=== PATIENT | male | born 1945 | race Caucasian/White ===

== ENCOUNTER 2018-01-02 21:00 | Emergency (ER) | payer OTHER ==
[~2018-01-02] VITALS: Ht 167.6 cm; Wt 73.9 kg
[~2018-01-02 21:00] MED LIST: ASPI325 PO; ASPI81EC PO; AZIT250 PO; CIPR500 PO; CLOP75 PO; Cipro500 MG PO; Coq-10100 MG PO; DIPASPER PO; DIPATR PO; FLUV20; GUAIFENESIN-CODE5 ML PO; HYDACE10B PO; HYDACE5 PO; IBUP800 PO; LEVFLO500 PO; LISI20 PO; METF500 PO; METO50 PO; METO50ER PO; NAPR500 PO; Norco 5-325 Ta1 EACH PO; OMEP20ER PO; ONDA4ODT MM; PANT40 PO; PRAV10 PO; PROCODE120 PO; Percocet 5-3251 EACH PO; ROSU10TA PO; SUCR1 PO; TAMS.4ER PO; Zofran Odt4 MG SL; Zofran Odt8 MG PO
[2018-01-02] MEDS ORDERED: FURO20 PO (21:20)
== END 2018-01-02 23:25 | disposition home or self-care (01) ==
LOC: ER 21:00
DX: I86.1 Scrotal varices (principal); N50.811 Right testicular pain; Z88.1 Allergy status to other antibiotic agents; Z88.8 Allergy status to other drugs, medicaments and biological substances; Z79.899 Other long term (current) drug therapy; Z79.82 Long term (current) use of aspirin; Z86.73 Personal history of transient ischemic attack (TIA), and cerebral infarction without residual deficits; I10 Essential (primary) hypertension; E11.9 Type 2 diabetes mellitus without complications; Z85.46 Personal history of malignant neoplasm of prostate
CPT/HCPCS: 76870; 81000; 99284

== ENCOUNTER 2018-03-17 20:18 | Inpatient (IN) | payer OTHER ==
[~2018-03-17] VITALS: Ht 177.8 cm; Wt 80.9 kg
[~2018-03-17 20:18] MED LIST changes: -ACET325 PO; -ALBU90OI6 INH; -BUDE10.22 INH; -CHOL10002 PO; -ERGO400 PO; -PRED10 PO; -SACC250C PO
[2018-03-17 20:52] LABS: BASOPHILS ABSOLUTE AUTO 0.03 K/mm3 (0.00-0.23); BASOPHILS PERCENT AUTO 0 % (0-2); EOSINOPHILS ABSOLUTE AUTO 0.14 K/mm3 (0.00-0.68); EOSINOPHILS PERCENT AUTO 2 % (0-6); Hemoglobin 14.7 g/dL (13.5-17.5); IMMATURE GRAN ABSOLUTE AUTO 0.03 K/mm3 (0.00-0.10); IMMATURE GRAN PERCENT AUTO 0 % (0-1); LYMPHOCYTES ABSOLUTE AUTO 2.16 K/mm3 (0.84-5.20); LYMPHOCYTES PERCENT AUTO 27 % (21-46); MONOCYTES ABSOLUTE AUTO 0.08 K/mm3 (0.16-1.47); MONOCYTES PERCENT AUTO 1 % (4-13); Mean Corpuscular HGB 31.4 pg (26.0-34.0); Mean Corpuscular HGB Conc 33.4 g/dL (31.5-36.5); Mean Corpuscular Volume 94 fL (80-100); Mean Platelet Volume 10.5 fL (9.1-12.4); NEUTROPHILS ABSOLUTE AUTO 5.46 K/mm3 (1.96-9.15); NEUTROPHILS PERCENT AUTO 69 % (41-73); Platelet Count 146 K/mm3 (150-400); RDW Coefficient Variation 12.7 % (11.7-14.2); RDW Standard Deviation 43.7 fL (35.1-46.3); Red Blood Cell Count 4.68 M/mm3 (4.30-5.90)
[2018-03-17 21:06] LABS: International Normalized Ratio 1.03; Prothrombin Time Results 10.7 Sec (9.7-11.5)
[2018-03-17 21:12] LABS: Alanine Aminotransfer (ALT/SGP 29 U/L (12-78); Albumin, Blood 3.5 g/dL (3.4-5.0); Alk Phos 72 U/L (50-136); Anion Gap 9 mmol/L (6-16); Aspartate Aminotrans (AST/SGOT 28 U/L (12-37); Bilirubin, Total 0.4 mg/dL (0.1-1.0); Blood Urea Nitrogen 21 mg/dL (8-24); Bun/Creatinine Ratio 15.4 (12.0-20.0); CO2, Blood 25 mmol/L (21-32); Chloride, Blood 106 mmol/L (98-108); Creatinine, Blood 1.36 mg/dL (0.60-1.20); Globulin, Blood 3.4 g/dL (2.2-4.0); Glomerular Filtration Rate 55 (60-); Glucose, Blood 109 mg/dL (70-99); Potassium, Blood 4.3 mmol/L (3.5-5.5); Sodium, Blood 140 mmol/L (136-145); Total Protein, Blood 6.9 g/dL (6.4-8.2); Troponin I <0.015 ng/mL (0.000-0.040)
[2018-03-17 21:26] LABS: Influenza A Negative (NEGATIVE); Influenza B Negative (NEGATIVE)
[2018-03-17 21:49] LABS: Source, Urine Clean Catch
[2018-03-17 21:59] LABS: Bilirubin, Urine Neg (Neg); Blood, Urine Neg (Neg); Glucose Qualitative, Urine Neg (Neg); Ketones, Urine Neg (Neg); Leukocyte Esterase, Urine Neg (Neg); Nitrite, Urine Neg (Neg); Protein, Urine Neg (Neg); Urobilinogen, Urine 1+ (Normal)
[2018-03-17 22:10] LABS: Appearance, Urine Clear (Clear); Color, Urine Yellow (P-Yellow)
[2018-03-17] MEDS ORDERED: ERGO400 PO (22:25)
[2018-03-18] MEDS ORDERED: CHOL10002 PO (00:06)
[2018-03-18 04:13] LABS: BASOPHILS ABSOLUTE AUTO 0.02 K/mm3 (0.00-0.23); BASOPHILS PERCENT AUTO 0 % (0-2); EOSINOPHILS PERCENT AUTO 0 % (0-6); Hematocrit 39.5 % (37.0-53.0); Hemoglobin 12.9 g/dL (13.5-17.5); IMMATURE GRAN ABSOLUTE AUTO 0.05 K/mm3 (0.00-0.10); IMMATURE GRAN PERCENT AUTO 0 % (0-1); LYMPHOCYTES ABSOLUTE AUTO 1.67 K/mm3 (0.84-5.20); LYMPHOCYTES PERCENT AUTO 14 % (21-46); MONOCYTES PERCENT AUTO 8 % (4-13); Mean Corpuscular HGB 31.1 pg (26.0-34.0); Mean Corpuscular HGB Conc 32.7 g/dL (31.5-36.5); Mean Corpuscular Volume 95 fL (80-100); NEUTROPHILS PERCENT AUTO 78 % (41-73); Platelet Count 145 K/mm3 (150-400); RDW Coefficient Variation 12.9 % (11.7-14.2); RDW Standard Deviation 44.8 fL (35.1-46.3); Red Blood Cell Count 4.15 M/mm3 (4.30-5.90); White Blood Cell Count 12.24 K/mm3 (4.00-11.30)
[2018-03-18 04:45] LABS: Bilirubin, Total 0.5 mg/dL (0.1-1.0); Bun/Creatinine Ratio 15.6 (12.0-20.0); Calcium, Blood 7.7 mg/dL (8.5-10.1); Creatinine, Blood 1.47 mg/dL (0.60-1.20); Globulin, Blood 2.9 g/dL (2.2-4.0); Potassium, Blood 4.6 mmol/L (3.5-5.5); Total Protein, Blood 5.9 g/dL (6.4-8.2)
[2018-03-19 04:07] LABS: BASOPHILS ABSOLUTE AUTO 0.01 K/mm3 (0.00-0.23); BASOPHILS PERCENT AUTO 0 % (0-2); EOSINOPHILS PERCENT AUTO 0 % (0-6); Hematocrit 39.7 % (37.0-53.0); Hemoglobin 13.2 g/dL (13.5-17.5); IMMATURE GRAN ABSOLUTE AUTO 0.08 K/mm3 (0.00-0.10); IMMATURE GRAN PERCENT AUTO 1 % (0-1); LYMPHOCYTES ABSOLUTE AUTO 2.47 K/mm3 (0.84-5.20); LYMPHOCYTES PERCENT AUTO 20 % (21-46); MONOCYTES PERCENT AUTO 4 % (4-13); Mean Corpuscular HGB 31.5 pg (26.0-34.0); Mean Corpuscular HGB Conc 33.2 g/dL (31.5-36.5); Mean Corpuscular Volume 95 fL (80-100); Mean Platelet Volume 11.1 fL (9.1-12.4); NEUTROPHILS ABSOLUTE AUTO 9.16 K/mm3 (1.96-9.15); NEUTROPHILS PERCENT AUTO 75 % (41-73); Platelet Count 144 K/mm3 (150-400); RDW Coefficient Variation 13.2 % (11.7-14.2); RDW Standard Deviation 45.6 fL (35.1-46.3); Red Blood Cell Count 4.19 M/mm3 (4.30-5.90); White Blood Cell Count 12.22 K/mm3 (4.00-11.30)
[2018-03-19 04:23] LABS: Anion Gap 6 mmol/L (6-16); Blood Urea Nitrogen 24 mg/dL (8-24); Bun/Creatinine Ratio 20.9 (12.0-20.0); CO2, Blood 22 mmol/L (21-32); Calcium, Blood 8.5 mg/dL (8.5-10.1); Chloride, Blood 113 mmol/L (98-108); Creatinine, Blood 1.15 mg/dL (0.60-1.20); Glomerular Filtration Rate >60 (60-); Glucose, Blood 142 mg/dL (70-99); Magnesium, Blood 2.1 mg/dL (1.6-2.4); Phosphorus, Blood 2.6 mg/dL (2.5-4.9); Potassium, Blood 4.8 mmol/L (3.5-5.5); Sodium, Blood 141 mmol/L (136-145)
[2018-03-19] MEDS ORDERED: ACET325 PO (09:52)
[2018-03-19] MEDS ORDERED: PRED10 PO (09:55)
[2018-03-19] MEDS ORDERED: SACC250C PO (09:56)
[2018-03-19] MEDS ORDERED: ALBU90OI6 INH (09:57)
[2018-03-19] MEDS ORDERED: AZIT250 PO (09:58)
[2018-03-19] MEDS ORDERED: BUDE10.22 INH (09:59)
== END 2018-03-19 11:15 | disposition home or self-care (01) | DRG 203 ==
LOC: ER 20:18 → PCU 20:19
PROVIDERS: Hospitalist; Internal Medicine; Physician Assistant
DX: J40 Bronchitis, not specified as acute or chronic (principal); R53.1 Weakness; I12.9 Hypertensive chronic kidney disease with stage 1 through stage 4 chronic kidney disease, or unspecified chronic kidney disease; N18.3 Chronic kidney disease, stage 3 (moderate); E78.5 Hyperlipidemia, unspecified; R19.7 Diarrhea, unspecified
CPT/HCPCS: 36415; 71046; 71275; 74175; 80048; 80053; 81003; 83605; 83735; 84100; 84484; 85025; 85610; 85730; 87040; 87070; 87076; 87086; 87185; 87205; 87804; 92610; 93005; 93010; 94640; 94760; 96361; 96365; 96375; 99285; G8996; G8997; G8998; J0456; J0696; J1650; J2405; J2930; J7030; J7050; Q9967

== ENCOUNTER → 2018-03-17 | Outpatient (CLI) | payer OTHER ==
[~2018-03-17] MED LIST changes: +ACET325 PO; +ALBU90OI6 INH; +BUDE10.22 INH; +CHOL10002 PO; +ERGO400 PO; +FURO20 PO; +PRED10 PO; +SACC250C PO
== END ==
LOC: LAB EV 10:23 → LAB SHORT 10:23
DX: J02.9 Acute pharyngitis, unspecified (principal)
CPT/HCPCS: 87070

== ENCOUNTER 2019-08-18 08:55 | Day surgery (SDC) | payer OTHER ==
[~2019-08-18] VITALS: Ht 167.6 cm; Wt 78.4 kg
[~2019-08-18 08:55] MED LIST changes: +ACET325 PO; +ALBU90OI6 INH; +ASPI325EC PO; +BUDE10.22 INH; +CHOL10002 PO; +ERGO400 PO; +METO25ER PO; +PRED10 PO; +SACC250C PO; +UBID10 PO
== END 2019-08-18 11:50 | disposition home or self-care (01) ==
LOC: ORSCSDS 08:55
PROVIDERS: Internal Medicine Gastroenterology
PROC: 0DB58ZX Excision of Esophagus, Via Natural or Artificial Opening Endoscopic, Diagnostic (ICD-10-PCS; principal; 2019-08-18 10:30)
PROC: 0DBK8ZX Excision of Ascending Colon, Via Natural or Artificial Opening Endoscopic, Diagnostic (ICD-10-PCS; principal; 2019-08-18 10:30)
DX: Z12.11 Encounter for screening for malignant neoplasm of colon (principal); Z86.010 Personal history of colon polyps; D12.2 Benign neoplasm of ascending colon; K22.70 Barrett's esophagus without dysplasia; K57.30 Diverticulosis of large intestine without perforation or abscess without bleeding; Z80.0 Family history of malignant neoplasm of digestive organs; K44.9 Diaphragmatic hernia without obstruction or gangrene; Z95.0 Presence of cardiac pacemaker; Z79.82 Long term (current) use of aspirin; Z79.899 Other long term (current) drug therapy
CPT/HCPCS: 88305; J2704; J7120

== ENCOUNTER 2021-04-29 17:48 | Observation (INO) | payer OTHER ==
[~2021-04-29] VITALS: Ht 167.6 cm; Wt 76.2 kg
[2021-04-29] MEDS ORDERED: ALLO100 PO (18:03)
[2021-04-29 18:16] LABS: Hematocrit 44.1 % (37.0-53.0); Hemoglobin 14.5 g/dL (13.5-17.5); Mean Corpuscular HGB 31.3 pg (26.0-34.0); Mean Corpuscular HGB Conc 32.9 g/dL (31.5-36.5); Mean Corpuscular Volume 95 fL (80-100); Mean Platelet Volume 11.1 fL (9.1-12.4); Platelet Count 177 K/mm3 (150-400); RDW Coefficient Variation 12.7 % (11.7-14.2); RDW Standard Deviation 44.1 fL (35.1-46.3); Red Blood Cell Count 4.64 M/mm3 (4.30-5.90); White Blood Cell Count 43.63 K/mm3 (4.00-11.30)
[2021-04-29 18:32] LABS: Albumin, Blood 3.8 g/dL (3.4-5.0); Albumin/Globulin Ratio 1.2 (0.8-1.8); Bilirubin, Total 0.4 mg/dL (0.1-1.0); Bun/Creatinine Ratio 19.4 (12.0-20.0); Calcium, Blood 8.9 mg/dL (8.5-10.1); Creatinine, Blood 1.44 mg/dL (0.60-1.20); Globulin, Blood 3.3 g/dL (2.2-4.0); Potassium, Blood 4.5 mmol/L (3.5-5.5); Total Protein, Blood 7.1 g/dL (6.4-8.2)
[2021-04-29 19:32] LABS: BASOPHILS PERCENT MAN 0 % (0-2); EOSINOPHILS ABSOLUTE MAN 0.43 K/mm3 (0.00-0.68); EOSINOPHILS PERCENT MAN 1 % (0-6); LYMPHOCYTES ABSOLUTE MAN 38.39 K/mm3 (0.84-5.20); LYMPHOCYTES PERCENT MAN 88 % (21-46); MONOCYTES ABSOLUTE MAN 0.87 K/mm3 (0.16-1.47); MONOCYTES PERCENT MAN 2 % (4-13); NEUTROPHILS ABSOLUTE MAN 3.92 K/mm3 (1.96-9.15); SEG NEUTROPHILS PERCENT MAN 9 % (41-73); TOTAL CELLS COUNTED 100
--- NOTE | 2021-04-29 22:48 | NUR ---
ADMITTED 75 YR OLD MALE TO FLOOR FROM THE ED WITH DX OF GI BLEED. PT REPORTED THAT EARLIER IN THE DAY HE FELT DIZZY, TOOK HIS BP AND IT WAS LOW, THEN AFTER SOME SLEEP, HE THREW UP "A MOUTHFUL OF BLOOD", AND HIS BROUGHT HIM TO THE HOSPITAL. ALERT AND ORIENTED X 4. ORIENTED TO CALL LIGHT, INSTRTUCTED TO USE IT IF HE FELT DIZZY. CALL LIGHT IN REACH.
[2021-04-29 22:51] LABS: Hematocrit 43.9 % (37.0-53.0); Hemoglobin 14.8 g/dL (13.5-17.5)
--- NOTE | 2021-04-29 23:11 | NUR ---
IVF OF NS AND PROTONIX DRIP ORDERED AND STARTED - SEE MAR FOR DETAILS. CALL LIGHT IN REACH. AFFECT CHEERFUL. NO REPORTED EMESIS OF THIS WRITING SINCE ADMIT TO FLOOR. WILL CONTINUE TO MONITOR
--- NOTE | 2021-04-30 05:47 | NUR ---
PLASTIC FABRICATOR SUMMARY WAS ADMITTED EARLIER IN THE SHIFT WITH DX OF UPPER GI BLEED AFTER REPORTEDLY HAVING BLOODY EMESIS AT HOME. IVF OF NS AND IV PROTONIX DRIP INFUSING PER MD ORDERS -SEE MAR FOR DETAILS. NO NOTED HEMATEMESIS SINCE ARRIVAL TO FLOOR LAST EVENING. MD MET PT AT BEDSIDE LAST NIGHT AND SAID HE WOULD BE SCHEDULED FOR AN EGD TODAY. WILL BE NPO AROUND 0700 FOR PROCEDURE. CALL LIGHT IN REACH.
[2021-04-30 07:27] LABS: Performing Lab BLOODWORKS; Test Name AB ID
[2021-04-30 07:37] LABS: Hematocrit 43.6 % (37.0-53.0); Hemoglobin 14.7 g/dL (13.5-17.5); Mean Corpuscular HGB 31.7 pg (26.0-34.0); Mean Corpuscular HGB Conc 33.7 g/dL (31.5-36.5); Mean Corpuscular Volume 94 fL (80-100); Mean Platelet Volume 10.8 fL (9.1-12.4); Platelet Count 156 K/mm3 (150-400); RDW Coefficient Variation 12.9 % (11.7-14.2); RDW Standard Deviation 44.4 fL (35.1-46.3); Red Blood Cell Count 4.64 M/mm3 (4.30-5.90); White Blood Cell Count 39.28 K/mm3 (4.00-11.30)
[2021-04-30 07:59] LABS: Albumin, Blood 3.5 g/dL (3.4-5.0); Albumin/Globulin Ratio 1.2 (0.8-1.8); Bilirubin, Total 0.6 mg/dL (0.1-1.0); Bun/Creatinine Ratio 18.9 (12.0-20.0); Calcium, Blood 8.5 mg/dL (8.5-10.1); Creatinine, Blood 1.27 mg/dL (0.60-1.20); Potassium, Blood 4.7 mmol/L (3.5-5.5); Total Protein, Blood 6.5 g/dL (6.4-8.2)
[2021-04-30 08:30] LABS: BASOPHILS PERCENT MAN 0 % (0-2); EOSINOPHILS ABSOLUTE MAN 0.39 K/mm3 (0.00-0.68); EOSINOPHILS PERCENT MAN 1 % (0-6); LYMPHOCYTES ABSOLUTE MAN 36.92 K/mm3 (0.84-5.20); LYMPHOCYTES PERCENT MAN 94 % (21-46); MONOCYTES PERCENT MAN 0 % (4-13); NEUTROPHILS ABSOLUTE MAN 1.96 K/mm3 (1.96-9.15); SEG NEUTROPHILS PERCENT MAN 5 % (41-73); TOTAL CELLS COUNTED 100
[2021-04-30 08:35] LABS: SARS-Cov-2 (COVID-19) PCR, MMC NEGATIVE (NEGATIVE)
--- NOTE | 2021-04-30 14:27 | NUR ---
History, Chart, Medications and Allergies reviewed before start of procedure. Lungs clear T/O to Auscultation. Patient confirms NPO status and agrees with scheduled surgery. Pre-Op teaching done. Pt verbalizes understanding.
--- NOTE | 2021-04-30 15:38 | NUR ---
04/30/21 1538 Marely Vogt History, Chart, Medications and Allergies reviewed before start of procedure. Patient confirms NPO status and agrees with scheduled surgery. 3-LEAD EKG REVIEWED WITH PHYSICIAN PRIOR TO START OF PROCEDURE. MONITOR INTACT WITH CONTINUOUS PULSE OXIMETRY AND INTERMITTENT BP. PATIENT DETERMINED TO BE ASA APPROPRIATE FOR PROPOFOL SEDATION PRIOR TO START OF PROCEDURE BY . Bite Block Placed AND THEN REMOVED AFTER PROCEDURE.
[2021-04-30 16:34] LABS: Hematocrit 45.3 % (37.0-53.0); Hemoglobin 15.1 g/dL (13.5-17.5)
--- NOTE | 2021-04-30 18:41 | NUR ---
PT DISCHARGED THE PT VERBALIZED UNDERSTANDING OF THE DC INSTRUCTIONS, THE PT APPEARED TO BE BREATHING EASILY ON RA T/O THE DAY, PT HAD NO BLOODY EMISIS TODAY, EGD WAS PREFORMED TODAY PT TOLERATED WELL, WAS ABLE TO EAT DINNER WITH NO N/V, PT WAS TRANSFERED VIA WHEELCHAIR ACCOMPANIED BY THE CUFF SETTER OVERLOCK AND HIS , THE PT WAS REMINDED TO CALL HIS PCP ON SUNDAY TO SCHEDULE A POST HOSPITAL REVIEW APPOINTMENT
[2021-05-02 10:09] LABS: Result SEE REPORT
== END 2021-04-30 18:10 | disposition home or self-care (01) ==
LOC: ER 17:48 → MEDS 17:49
PROVIDERS: Emergency Medicine; Internal Medicine Gastroenterology; ADMIT Internal Medicine
PROC: 0DJ08ZZ Inspection of Upper Intestinal Tract, Via Natural or Artificial Opening Endoscopic (ICD-10-PCS; principal; 2021-04-30 10:00)
DX: K26.4 Chronic or unspecified duodenal ulcer with hemorrhage (principal); T39.015A Adverse effect of aspirin, initial encounter; K22.8 Other specified diseases of esophagus; K44.9 Diaphragmatic hernia without obstruction or gangrene; M19.90 Unspecified osteoarthritis, unspecified site; E78.5 Hyperlipidemia, unspecified; Z85.46 Personal history of malignant neoplasm of prostate; Z85.828 Personal history of other malignant neoplasm of skin; Z85.6 Personal history of leukemia; Z88.6 Allergy status to analgesic agent; Z88.1 Allergy status to other antibiotic agents; Z88.8 Allergy status to other drugs, medicaments and biological substances; Z95.0 Presence of cardiac pacemaker; K21.9 Gastro-esophageal reflux disease without esophagitis; Z86.73 Personal history of transient ischemic attack (TIA), and cerebral infarction without residual deficits; I12.9 Hypertensive chronic kidney disease with stage 1 through stage 4 chronic kidney disease, or unspecified chronic kidney disease; N18.9 Chronic kidney disease, unspecified; E03.9 Hypothyroidism, unspecified; Z20.822 Contact with and (suspected) exposure to COVID-19
CPT/HCPCS: 36415; 71045; 80053; 84484; 85014; 85018; 85025; 86850; 86860; 86870; 86880; 86900; 86901; 86906; 86971; 93005; 93010; 93970; 96374; 96376; 99285-25; A9270; C9113; G0378; J2704; J7030; U0004

== ENCOUNTER 2021-12-21 08:36 | Emergency (ER) | payer OTHER ==
[~2021-12-21] VITALS: Ht 167.6 cm; Wt 77.1 kg
[~2021-12-21 08:36] MED LIST changes: +ALLO100 PO; +LOPE2C PO
== END 2021-12-21 09:28 | disposition home or self-care (01) ==
LOC: ER 08:36
DX: S60.222A Contusion of left hand, initial encounter (principal); I10 Essential (primary) hypertension; E78.5 Hyperlipidemia, unspecified; Z79.899 Other long term (current) drug therapy; X58.XXXA Exposure to other specified factors, initial encounter
CPT/HCPCS: 73130; 99283-25; A9270

== ENCOUNTER 2023-03-08 05:54 | Day surgery (SDC) | payer OTHER ==
[2023-03-08] VITALS (13 sets, daily range): BP systolic 118–170; BP diastolic 48–76
[~2023-03-08] VITALS: Ht 165.1 cm; Wt 78.5 kg
[~2023-03-08 05:54] MED LIST changes: +CALQUENCE100 M1 PO
[2023-03-08] MEDS ORDERED: ASPI81CH PO (06:36)
[2023-03-08] MEDS ORDERED: AMLO5 PO (06:36)
--- NOTE | 2023-03-08 09:01 | NUR ---
PT BACK TO RECOVERY ROOM VIA RECLINER AFTER PROCEDURE. AWAKE AND ALERT, DENIES ANY PAIN OR DISCOMFORT. BREAKFAST TRAY AND COFFEE GIVEN PER PT REQUEST. SPOUSE AT BEDSIDE. VSS, CALL LIGHT IN REACH. RIGHT CHEST SITE CLEAN AND DRY, MEDIPORE DRESSING IN PLACE.
--- NOTE | 2023-03-08 09:39 | NUR ---
RX FOR KEFLEX CALLED IN TO [facility] PER REQUEST FROM PT'S SPOUSE. PT DENIES CURRENT PAIN OR DISCOMFORT. VSS, CALL LIGHT IN REACH. NO BLEEDING OR SWELLING TO RIGHT CHEST SITE.
--- NOTE | 2023-03-08 10:18 | NUR ---
PACEMAKER REP AT BEDSIDE SPEAKING WITH PT AND SPOUSE ABOUT NEW PACMAKER TRANSMITTER. PT CONTINUES TO DENY ANY PAIN OR DISCOMFORT. VSS, WILL CONTINUE TO MONITOR UNTIL DISCHARGE.
--- NOTE | 2023-03-08 11:22 | NUR ---
IV DC'D, CATH INTACT. PT AND SPOUSE GIVEN DC INSTRUCTIONS, VERBALIZED UNDERSTANDING. PT WILL FOLLOW UP NEXT SUNDAY AT THE OFFICE SCHEDULED FOR A WOUND CHECK. PT OUT TO CAR VIA WHEELCHAIR. RIGHT CHEST SITE REMAINS CLEAN AND DRY, NO BLEEDING OR SWELLING NOTED AT SITE.
== END 2023-03-08 11:52 | disposition home or self-care (01) ==
LOC: MHTC 05:54
DX: Z45.010 Encounter for checking and testing of cardiac pacemaker pulse generator [battery] (principal); I35.1 Nonrheumatic aortic (valve) insufficiency; E78.5 Hyperlipidemia, unspecified; I10 Essential (primary) hypertension; C91.10 Chronic lymphocytic leukemia of B-cell type not having achieved remission
CPT/HCPCS: 33228; 99152; 99153; C1781; C1785; J0690; J1644; J2250; J3010; J7030; J7040

== ENCOUNTER → 2023-04-24 | Outpatient (CLI) | payer OTHER ==
[~2023-04-24] MED LIST changes: +AMLO5 PO; +ASPI81CH PO
== END | disposition home or self-care (01) ==
LOC: PLD 11:10 → LAB SHORT 11:10
DX: C44.311 Basal cell carcinoma of skin of nose (principal)
CPT/HCPCS: 88305

== ENCOUNTER 2024-08-09 05:09 | Observation (INO) | payer OTHER ==
[~2024-08-09] VITALS: Ht 167.6 cm; Wt 90.7 kg
[2024-08-09] VITALS (13 sets, daily range): BP systolic 119–155; BP diastolic 59–86
[~2024-08-09 05:09] MED LIST changes: -ASPI81CH PO
[2024-08-09] MEDS ORDERED: HYDROmorphone HCl/Pf 1MG SYR IV ONE ×2 (06:30→09:30)
[2024-08-09] MEDS ORDERED: AmLODIPine Besylate 5 MG Tab PO ONE (07:30)
[2024-08-09] MEDS ORDERED: Lisinopril 20 MG Tab PO ONE (07:30)
[2024-08-09 07:36] LABS: BASOPHILS ABSOLUTE AUTO 0.09 K/mm3 (0.00-0.23); BASOPHILS PERCENT AUTO 1 % (0-2); EOSINOPHILS ABSOLUTE AUTO 0.29 K/mm3 (0.00-0.68); EOSINOPHILS PERCENT AUTO 3 % (0-6); Hemoglobin 15.4 g/dL (13.5-17.5); IMMATURE GRAN ABSOLUTE AUTO 0.02 K/mm3 (0.00-0.10); IMMATURE GRAN PERCENT AUTO 0 % (0-1); LYMPHOCYTES ABSOLUTE AUTO 3.86 K/mm3 (0.84-5.20); LYMPHOCYTES PERCENT AUTO 42 % (21-46); MONOCYTES ABSOLUTE AUTO 0.69 K/mm3 (0.16-1.47); MONOCYTES PERCENT AUTO 8 % (4-13); Mean Corpuscular HGB 32.5 pg (26.0-34.0); Mean Corpuscular HGB Conc 33.5 g/dL (31.5-36.5); Mean Corpuscular Volume 97 fL (80-100); Mean Platelet Volume 11.7 fL (9.1-12.4); NEUTROPHILS ABSOLUTE AUTO 4.28 K/mm3 (1.96-9.15); NEUTROPHILS PERCENT AUTO 46 % (41-73); Platelet Count 155 K/mm3 (150-400); RDW Coefficient Variation 12.4 % (11.7-14.2); RDW Standard Deviation 44.5 fL (35.1-46.3); Red Blood Cell Count 4.74 M/mm3 (4.30-5.90); White Blood Cell Count 9.23 K/mm3 (4.00-11.30)
[2024-08-09 07:58] LABS: Albumin, Blood 3.5 g/dL (3.4-5.0); Albumin/Globulin Ratio 1.1 (0.8-1.8); Bilirubin, Total 0.5 mg/dL (0.1-1.0); Bun/Creatinine Ratio 17.5 (12.0-20.0); Calcium, Blood 8.8 mg/dL (8.5-10.1); Creatinine, Blood 1.14 mg/dL (0.60-1.20); Globulin, Blood 3.3 g/dL (2.2-4.0); Potassium, Blood 4.4 mmol/L (3.5-5.5); Total Protein, Blood 6.8 g/dL (6.4-8.2)
[2024-08-09 08:33] LABS: Source, Urine Clean Catch
[2024-08-09 09:22] LABS: Appearance, Urine Clear (Clear); Bilirubin, Urine Neg (Neg); Blood, Urine Neg (Neg); Glucose Qualitative, Urine Neg (Neg); Ketones, Urine Neg (Neg); Leukocyte Esterase, Urine Neg (Neg); Nitrite, Urine Neg (Neg); Protein, Urine Neg (Neg); Urobilinogen, Urine NORM (Normal); pH, Urine 6.5 (5.0-8.0)
[2024-08-09 09:24] LABS: Color, Urine Pale Yellow (P-Yellow)
[2024-08-09] MEDS ORDERED: Morphine Sulfate 4 MG/1 ML Injection IV PRN (10:35)
[2024-08-09] MEDS ORDERED: Pantoprazole Sodium 40 MG Injection IV SCH (12:00)
[2024-08-09] MEDS ORDERED: Piperacillin/Tazobactam Sod 3.375 GM in NS 100 ML IV SCH (12:00)
[2024-08-09] MEDS ORDERED: Bupivacaine 0.5% HCl 5 MG/ML 30MLVIAL ONE (13:09)
[2024-08-09] MEDS ORDERED: propofoL 20 ML IV ONE (13:50)
[2024-08-09] MEDS ORDERED: FentaNYL Citrate 50 MCG/ML 2 ML Injection ONE (13:50)
[2024-08-09] MEDS ORDERED: Dexamethasone Sod Phos 10 MG/ML 1ML VIAL ONE (14:02)
[2024-08-09] MEDS ORDERED: Rocuronium Bromide 10 MG/ML 5ML Injection IV ONE (14:33)
[2024-08-09] MEDS ORDERED: Sugammadex Sodium 200 MG/2ML SDV (100 MG/ML) ONE (15:52)
[2024-08-09] MEDS ORDERED: Ondansetron HCl 2 MG / ML 2ML Vial ONE (15:52)
--- NOTE | 2024-08-09 17:20 | NUR ---
PT ARRIVED TO THE ROOM FROM PACU AT APPROXIMATELY 1720. PT DROWSY BUT WAKES WHEN SPOKEN TO. VSS. FAMILY PRESENT FOR SUPPORT. ABD LAP SITES X3, CLOSED WITH TISSUE ADHESIVE AND C/D/I.
[2024-08-09] MEDS ORDERED: NS 250 ML IV PRN (17:45)
--- NOTE | 2024-08-09 20:16 | NUR ---
SHIFT SUMMARY PT IS POD#0 FROM LAP HERNIA REPAIR WITH DR. DEJESUS. PAIN MANAGED WITH MORPHINE. PT TOLERATING PO. FAMILY PRESENT FOR SUPPORT. BEDSIDE REPORT GIVEN TO GERMÁN MICHAEL.
[2024-08-09] MEDS ORDERED: CALQUENCE 100 MG PO SCH (21:00)
[2024-08-10 00:20] VITALS: BP 148/60
[2024-08-10 04:18] VITALS: BP 183/68
[2024-08-10 04:25] LABS: BASOPHILS ABSOLUTE AUTO 0.01 K/mm3 (0.00-0.23); BASOPHILS PERCENT AUTO 0 % (0-2); EOSINOPHILS PERCENT AUTO 0 % (0-6); Hematocrit 44.6 % (37.0-53.0); Hemoglobin 15.3 g/dL (13.5-17.5); IMMATURE GRAN ABSOLUTE AUTO 0.05 K/mm3 (0.00-0.10); IMMATURE GRAN PERCENT AUTO 0 % (0-1); LYMPHOCYTES ABSOLUTE AUTO 3.15 K/mm3 (0.84-5.20); LYMPHOCYTES PERCENT AUTO 24 % (21-46); MONOCYTES ABSOLUTE AUTO 0.16 K/mm3 (0.16-1.47); MONOCYTES PERCENT AUTO 1 % (4-13); Mean Corpuscular HGB Conc 34.3 g/dL (31.5-36.5); Mean Corpuscular Volume 96 fL (80-100); Mean Platelet Volume 12.1 fL (9.1-12.4); NEUTROPHILS ABSOLUTE AUTO 9.83 K/mm3 (1.96-9.15); NEUTROPHILS PERCENT AUTO 74 % (41-73); Platelet Count 154 K/mm3 (150-400); RDW Coefficient Variation 12.5 % (11.7-14.2); Red Blood Cell Count 4.63 M/mm3 (4.30-5.90)
[2024-08-10 04:43] LABS: Calcium, Blood 8.9 mg/dL (8.5-10.1); Creatinine, Blood 1.16 mg/dL (0.60-1.20); Potassium, Blood 4.2 mmol/L (3.5-5.5)
[2024-08-10] MEDS ORDERED: HYDROcodone 5-APAP 325 TAB PO PRN (04:45)
[2024-08-10 05:23] VITALS: BP 136/62
--- NOTE | 2024-08-10 05:25 | NUR ---
SHIFT SUMMARY PT IS POD1 FOR INCARCERATED INGUINAL HERNIA REPAIR. LAP SITES C/D/I. PT REPORTS PASSING FLATUS AND IS TOLERATING CL DIET. MEDICATED FOR PAIN ONCE THIS SHIFT W/ TOLERABLE RESULTS. PT SBA TO BR AND IS VOIDING APPROPRIATELY. VSS. ABX GIVEN PER EMAR. PT CALLING APPROPRIATELY, AT BEDSIDE.
[2024-08-10 07:10] VITALS: BP 147/65
[2024-08-10] MEDS ORDERED: Lisinopril 20 MG Tab PO SCH (09:00)
[2024-08-10] MEDS ORDERED: Allopurinol 100 MG Tab PO SCH (09:00)
[2024-08-10] MEDS ORDERED: AmLODIPine Besylate 5 MG Tab PO SCH (09:00)
[2024-08-10] MEDS ORDERED: HYDROCODONE-AC1 EA10 PO (10:53)
[2024-08-10] MEDS ORDERED: ASPI81CH PO ×2 (11:23)
[2024-08-10 11:24] VITALS: BP 154/58
--- NOTE | 2024-08-10 11:35 | NUR ---
DISCHARGE PT AND HIS SPOUSE WERE PROVIDED WITH WRITTEN AND VERBAL DISCHARGE INSTRUCTIONS, THEY REPORTED UNDERSTANDING. PT ABLE TO TOLERATE REGULAR DIET, VOID, AMBULATE AND PAIN MANAGED PRIOR TO DISCHARGE. PRESCRIPTION FOR PAIN MEDICATION PROVIDED TO PT. PT ASSISTED OUT IN W/C AT APPROXIMATELY 1135.
== END 2024-08-10 11:38 | disposition home or self-care (01) ==
LOC: ER 05:09 → SURS 05:10
PROVIDERS: Student in an Organized Health Care Education/Training Program; Surgery; ADMIT Internal Medicine
PROC: 0YQ70ZZ Repair Right Femoral Region, Open Approach (ICD-10-PCS; principal; 2024-08-09 12:30)
PROC: 0YQ54ZZ Repair Right Inguinal Region, Percutaneous Endoscopic Approach (ICD-10-PCS; principal; 2024-08-09 12:30)
DX: K40.30 Unilateral inguinal hernia, with obstruction, without gangrene, not specified as recurrent (principal); K41.90 Unilateral femoral hernia, without obstruction or gangrene, not specified as recurrent; K66.0 Peritoneal adhesions (postprocedural) (postinfection); K22.70 Barrett's esophagus without dysplasia; C91.10 Chronic lymphocytic leukemia of B-cell type not having achieved remission; N40.0 Benign prostatic hyperplasia without lower urinary tract symptoms; M10.9 Gout, unspecified; I12.9 Hypertensive chronic kidney disease with stage 1 through stage 4 chronic kidney disease, or unspecified chronic kidney disease; N18.30 Chronic kidney disease, stage 3 unspecified; E78.5 Hyperlipidemia, unspecified; K21.9 Gastro-esophageal reflux disease without esophagitis; I49.5 Sick sinus syndrome; Z95.0 Presence of cardiac pacemaker; Z88.1 Allergy status to other antibiotic agents; Z88.8 Allergy status to other drugs, medicaments and biological substances; Z79.82 Long term (current) use of aspirin; Z79.899 Other long term (current) drug therapy
CPT/HCPCS: 36415; 74177; 80048; 80053; 81003; 83690; 83735; 85025; 93005; 93010; 96365-59; 96375; 96376; 99284-25; A9270; C1781; G0378; J1100; J1170; J2270; J2405; J2470; J2543; J2704; J3010; J7050; Q9967

== ENCOUNTER 2024-11-03 06:23 | Day surgery (SDC) | payer OTHER ==
[~2024-11-03] VITALS: Ht 167.6 cm; Wt 77.3 kg
[~2024-11-03 06:23] MED LIST changes: +ASPI81CH PO; +HYDROCODONE-AC1 EA10 PO
[2024-11-03] MEDS ORDERED: COENZYME Q10100 MG (06:47)
[2024-11-03] MEDS ORDERED: CENTRUM SILVER1 EAC2 (06:54)
[2024-11-03] MEDS ORDERED: Lidocaine HCl/Pf 1% 5 ML VIAL ONE (07:10)
[2024-11-03] MEDS ORDERED: Lactated Ringer's 1,000 ML IV ONE ×2 (07:24→07:46)
[2024-11-03] MEDS ORDERED: propofoL 50 ML IV ONE (07:24)
[2024-11-03 09:05] VITALS: BP 110/68
== END 2024-11-03 09:13 | disposition home or self-care (01) ==
LOC: ORSCSDS 06:23
PROVIDERS: Internal Medicine Gastroenterology
PROC: 0DBH8ZX Excision of Cecum, Via Natural or Artificial Opening Endoscopic, Diagnostic (ICD-10-PCS; principal; 2024-11-03 08:00)
PROC: 0DBL8ZX Excision of Transverse Colon, Via Natural or Artificial Opening Endoscopic, Diagnostic (ICD-10-PCS; principal; 2024-11-03 08:00)
PROC: 0DJ08ZZ Inspection of Upper Intestinal Tract, Via Natural or Artificial Opening Endoscopic (ICD-10-PCS; principal; 2024-11-03 08:00)
PROC: 0DBP8ZX Excision of Rectum, Via Natural or Artificial Opening Endoscopic, Diagnostic (ICD-10-PCS; principal; 2024-11-03 08:00)
DX: Z12.11 Encounter for screening for malignant neoplasm of colon (principal); Z86.0100 Personal history of colon polyps, unspecified; K22.70 Barrett's esophagus without dysplasia; D12.3 Benign neoplasm of transverse colon; D12.8 Benign neoplasm of rectum; K63.5 Polyp of colon; K57.30 Diverticulosis of large intestine without perforation or abscess without bleeding; K44.9 Diaphragmatic hernia without obstruction or gangrene; Z80.0 Family history of malignant neoplasm of digestive organs; C91.10 Chronic lymphocytic leukemia of B-cell type not having achieved remission; K21.9 Gastro-esophageal reflux disease without esophagitis; I10 Essential (primary) hypertension; Z85.46 Personal history of malignant neoplasm of prostate; Z85.828 Personal history of other malignant neoplasm of skin; Z79.899 Other long term (current) drug therapy; Z79.82 Long term (current) use of aspirin
CPT/HCPCS: 88305; J2003; J2704; J7120

== ENCOUNTER 2025-04-30 07:57 | Day surgery (SDC) | payer OTHER ==
[~2025-04-30] VITALS: Ht 167.6 cm; Wt 78.1 kg
[~2025-04-30 07:57] MED LIST changes: +Balanced Salt Epinephrine Irrigation Solution 500 mL IR SCH; +CENTRUM SILVER1 EAC2; +COENZYME Q10100 MG; +Diazepam 2 MG Tab PO PRN; +Lidocaine HCl/Pf 1% 5 ML VIAL ONE; +Lidocaine HCl/Pf 1% 5 ML VIAL XX SCH; +Ondansetron 4 MG SoluTab MM PRN; +PHENYLEPHRINE\\TROPICAMIDE\\TETRACAINE OPHTHALMIC DILATING SOLN RIGHTEYE PRN; +Povidone-Iodine 450 DROP/30 ML Solution ONE; +Povidone-Iodine 450 DROP/30 ML Solution RIGHTEYE SCH; +Tetracaine HCl/Pf 0.5% Opth Soln 4 ml ONE; +Triamcinolone Inj Susp 40 MG / ML 1ML Vial INJ SCH; +Triamcinolone Inj Susp 40 MG / ML 1ML Vial ONE; +diazePAM 2 MG,diazePAM 5 MG PO SCH
[2025-04-30] MEDS ORDERED: Diazepam 5 MG Tab ONE (08:26)
[2025-04-30] MEDS ORDERED: Diazepam 2 MG Tab ONE (08:26)
--- NOTE | 2025-04-30 08:44 | NUR ---
04/30/25 0844 Danay Nails BETADINE SKIN TEST LEFT FOREARM DONE AT 0843. WILL MONITOR FOR SIGNS OF REACTION. PT TOLERATED PLEDGET PLACEMENT WELL. UPON ARRIVAL PT RATES ANXIETY 0/10.
[2025-04-30] MEDS ORDERED: Moxifloxacin HCL 0.5 MG/0.1 ML 0.4MLSYR XX ONE (09:30)
--- NOTE | 2025-04-30 09:31 | NUR ---
04/30/25 0931 Colleen Zhao BP-172/68 P-60 SPO2-100% 10L BLOW BY O2
[2025-04-30 09:45] VITALS: BP 159/71
== END 2025-04-30 09:57 | disposition home or self-care (01) ==
LOC: ORSCSDS 07:57
PROVIDERS: Ophthalmology
PROC: 08RJ3JZ Replacement of Right Lens with Synthetic Substitute, Percutaneous Approach (ICD-10-PCS; principal; 2025-04-30 09:30)
DX: H25.813 Combined forms of age-related cataract, bilateral (principal); Z95.0 Presence of cardiac pacemaker; I10 Essential (primary) hypertension; Z86.73 Personal history of transient ischemic attack (TIA), and cerebral infarction without residual deficits; Z79.899 Other long term (current) drug therapy
CPT/HCPCS: A9270; J2003; J3301; V2632